=== PATIENT | female | born 1985 | race Caucasian/White ===

== ENCOUNTER 2021-09-07 02:33 | Emergency (ER) | payer OTHER ==
[~2021-09-07] VITALS: Ht 170.2 cm; Wt 99.8 kg
[2021-09-07] MEDS ORDERED: HYDR-3972 PO (03:50)
--- NOTE | 2021-09-07 03:58 | NUR ---
Patient discharged to home in stable condition. Written and verbal after care instructions given. Patient verbalizes understanding of instruction.
[2021-09-07 03:59] VITALS: BP 140/80
== END 2021-09-07 04:33 | disposition home or self-care (01) ==
LOC: ER 02:40
DX: S52.292A Other fracture of shaft of left ulna, initial encounter for closed fracture (principal); Z60.2 Problems related to living alone; X58.XXXA Exposure to other specified factors, initial encounter; Y93.89 Activity, other specified; Y92.89 Other specified places as the place of occurrence of the external cause; Y99.8 Other external cause status
CPT/HCPCS: 73090-TC